=== PATIENT | female | born 1950 | race Two or more races ===

== ENCOUNTER 2017-02-12 00:54 | Emergency (ER) | payer MEDICARE, OTHER ==
[~2017-02-12] VITALS: Ht 160 cm; Wt 56.7 kg
[~2017-02-12 00:54] MED LIST: QUET200T PO; RIVA10TA PO
[2017-02-12 01:52] LABS: BASOPHILS # (AUTO) 0.1 /CMM (0.0-0.2); BASOPHILS % (AUTO) 0.6 % (0.0-2.0); HEMATOCRIT 37 % (33-45); HEMOGLOBIN 12.4 g/dL (11.5-14.8); LYMPHOCYTES # (AUTO) 1.3 /CMM (0.8-4.8); LYMPHOCYTES % (AUTO) 12.4 % (20.0-44.0); MEAN CORPUSCULAR HEMOGLOBIN 30 PG (26.0-33.0); MEAN CORPUSCULAR HGB CONC 33 g/dl (31.0-36.0); MEAN CORPUSCULAR VOLUME 90 fL (82-100); MONOCYTES # (AUTO) 1.2 /CMM (0.1-1.30); MONOCYTES % (AUTO) 11.9 % (2.0-12.0); NEUTROPHILS # (AUTO) 7.8 /CMM (1.8-8.9); NEUTROPHILS % (AUTO) 75.1 % (43.0-81.0); PLATELET COUNT (AUTO) 262 /CMM (150-450); RDW COEFFICIENT OF VARIATION 12.9 (11.5-15.0); RED BLOOD CELL COUNT(AUTO) 4.15 MIL/uL (4.0-5.2); WHITE BLOOD COUNT (AUTO) 10.4 K/uL (4.3-11.0)
[2017-02-12 02:01] LABS: CALCIUM, SERUM 7.9 mg/dL (8.5-10.1); CARBON DIOXIDE 31 mmol/L (21-32); CHLORIDE 97 mmol/L (98-107); GLUCOSE 107 mg/dL (74-106); POTASSIUM 3.6 mmol/L (3.5-5.1); SODIUM SERUM 134 mmol/L (136-145); UREA NITROGEN, BLOOD 13 mg/dL (7-18)
[2017-02-12 02:04] LABS: INR 0.99 (0.87-1.13); PROTHROMBIN TIME 10.6 SECS (9.5-12.7)
[2017-02-12 02:10] LABS: TROPONIN I < 0.017 ng/mL (0.00-0.056)
[2017-02-12] MEDS ORDERED: IV NS 0.9% 1,000 ML BAG IV ONE (03:00)
[2017-02-12] MEDS ORDERED: IV SET PRIMARY 1 EA INFUS.SET MC ONE ×2 (03:00→04:55)
[2017-02-12] MEDS ORDERED: IV NS 0.9% 1,000 ML ONE (03:00)
[2017-02-12 04:49] LABS: APPEARANCE,URINE SL CLOUDY (CLEAR); BILIRUBIN,URINE NEGATIVE (NEGATIVE); BLOOD, URINE TRACE-INTA Ery/uL (NEGATIVE); COLOR,URINE YELLOW (YELLOW); KETONES,URINE 1+ (NEGATIVE); LEUKOCYTE ESTERASE ,URINE 3+ (NEGATIVE); NITRITE, URINE NEGATIVE (NEGATIVE); PH,URINE 7.5 (5.0-8.0); PROTEIN,URINE NEGATIVE (NEGATIVE); UGLUCOSE NEGATIVE (NEGATIVE); UROBILINOGEN,URINE 0.2 EU/dL (0.2)
[2017-02-12] MEDS ORDERED: CEFTRIAXONE 1GM BAG (ER ONLY) 50 ML IV ONE (04:54)
[2017-02-12] MEDS ORDERED: CEFTRIAXONE 1 G in IV D5W 50 ML IV ONE (05:00)
[2017-02-12 05:01] LABS: BACTERIA,URINE 3+ /HPF (None Seen); SQUAMOUS EPITHELIAL CELL,UR Few /HPF (None Seen); WBC,URINE 81-100 /HPF (0-3)
[2017-02-12 05:23] VITALS: BP 129/77
== END 2017-02-12 05:24 | disposition home or self-care (01) ==
LOC: ER 00:55
DX: S00.03XA Contusion of scalp, initial encounter (principal); R55 Syncope and collapse; N30.00 Acute cystitis without hematuria; R82.99 Other abnormal findings in urine; Z88.2 Allergy status to sulfonamides; W22.8XXA Striking against or struck by other objects, initial encounter; Y93.89 Activity, other specified; Y92.89 Other specified places as the place of occurrence of the external cause; Y99.9 Unspecified external cause status
CPT/HCPCS: 36415; 70450-TC; 71010-TC; 80048-TC; 81000-TC; 84484-TC; 85025-TC; 85730-TC; 87086-TC; 87186-TC; A4606; J0696; J7030; Z7610

== ENCOUNTER 2017-03-09 16:14 | Inpatient (IN) | payer MEDICARE, OTHER ==
[~2017-03-09] VITALS: Ht 157.5 cm; Wt 53.5 kg
--- NOTE | 2017-03-09 19:43 | NUR ---
PT TO ER BED
--- NOTE | 2017-03-09 19:45 | NUR ---
PT BIBSELF, AMBULATORY TO ER BED 6, C/O HEADACHES AND R EYE PRESSURE, X 1 MONTH. PT WAS HERE 1 MONTH AGO FOR GLF AND HITTING FOREHEAD. PT AOX4 RR EVEN AND UNLABORED. NO SOB NOTED. NO NVD AT THIS TIME. PT GOWNED AND PLACED ON MONITOR. WAITING FOR MD WEBB.
--- NOTE | 2017-03-09 20:05 | NUR ---
DR. PIERRE AT BEDSIDE FOR EVAL.
--- NOTE | 2017-03-09 20:17 | NUR ---
Note kaylie in EDM - 03/09/17 at 2042 by SANDIE INFORMED MARKO BRENNAN FROM [facility] [address] TO BE TRANSFERED BACK TO FACILITY. HR [address] GABBY LAWSON[address] PER MARKO BRENNAN WILL SPEAKING TO DON REGARDING ACCEPTING TRANSFER. WAITING FOR CALL BACK.
[2017-03-09] MEDS ORDERED: IV NS 0.9% 1,000 ML BAG IV ONE (20:30)
[2017-03-09] MEDS ORDERED: IV SET PRIMARY 1 EA INFUS.SET MC ONE (20:40)
[2017-03-09] MEDS ORDERED: IV NS 0.9% 1,000 ML ONE (20:40)
[2017-03-09 20:41] LABS: BASOPHILS # (AUTO) 0.1 /CMM (0.0-0.2); EOSINOPHILS # (AUTO) 0.1 /CMM (0.0-0.7); EOSINOPHILS % (AUTO) 1.9 % (0.0-6.0); HEMATOCRIT 43 % (33-45); LYMPHOCYTES # (AUTO) 2.6 /CMM (0.8-4.8); LYMPHOCYTES % (AUTO) 34.1 % (20.0-44.0); MEAN CORPUSCULAR HEMOGLOBIN 23 PG (26.0-33.0); MEAN CORPUSCULAR HGB CONC 26 g/dl (31.0-36.0); MEAN CORPUSCULAR VOLUME 90 fL (82-100); MONOCYTES # (AUTO) 0.7 /CMM (0.1-1.30); MONOCYTES % (AUTO) 8.9 % (2.0-12.0); NEUTROPHILS # (AUTO) 4.2 /CMM (1.8-8.9); NEUTROPHILS % (AUTO) 54.1 % (43.0-81.0); PLATELET COUNT (AUTO) 313 /CMM (150-450); RDW COEFFICIENT OF VARIATION 12.8 (11.5-15.0); RED BLOOD CELL COUNT(AUTO) 4.79 MIL/uL (4.0-5.2); WHITE BLOOD COUNT (AUTO) 7.7 K/uL (4.3-11.0)
--- NOTE | 2017-03-09 20:42 | NUR ---
PT TO CT.
[2017-03-09 20:53] LABS: CALCIUM, SERUM 9.1 mg/dL (8.5-10.1); CARBON DIOXIDE 25 mmol/L (21-32); CHLORIDE 97 mmol/L (98-107); CREATININE 0.9 mg/dL (0.6-1.3); GLUCOSE 177 mg/dL (74-106); POTASSIUM 4.1 mmol/L (3.5-5.1); SODIUM SERUM 130 mmol/L (136-145); UREA NITROGEN, BLOOD 11 mg/dL (7-18)
[2017-03-09 20:56] LABS: INR 0.9 (0.87-1.13); PROTHROMBIN TIME 9.4 SECS (9.5-12.7)
[2017-03-09 20:59] LABS: ALANINE AMINOTRANSFERASE 16 U/L (12-78); ALBUMIN 3.9 g/dL (3.4-5.0); ALKALINE PHOSPHATASE 86 U/L (46-116); ASPARTATE AMINOTRANSFERASE 19 U/L (15-37); BILIRUBIN,DIRECT 0.1 mg/dL (0.0-0.2); BILIRUBIN,TOTAL 0.5 mg/dL (0.2-1.0); TOTAL PROTEIN, SERUM 7.6 g/dL (6.4-8.2)
[2017-03-09 21:01] LABS: TROPONIN I < 0.017 ng/mL (0.00-0.056)
--- NOTE | 2017-03-09 21:10 | NUR ---
PT RETURNED FROM CT.
--- NOTE | 2017-03-09 21:54 | NUR ---
JUVENTINO HERBERT AT BEDSIDE FOR EVAL.
[2017-03-09] MEDS ORDERED: HYDROCODONE/APAP 5/325MG 1 EACH TABLET PO PRN (22:30)
[2017-03-09] MEDS ORDERED: MAGNESIUM HYDROXIDE 30 ML UDC PO PRN (22:30)
[2017-03-09] MEDS ORDERED: ONDANSETRON HCL/PF 4 MG/2 ML VIAL IVP PRN (22:30)
[2017-03-09] MEDS ORDERED: ZOLPIDEM TARTRATE 5 MG TABLET PO PRN (22:30)
[2017-03-09] MEDS ORDERED: MAG HYDROX/AL HYDROX/SIMETH 30 ML UDC PO PRN (22:30)
[2017-03-09] MEDS ORDERED: ACETAMINOPHEN 325 MG TABLET PO PRN (22:30)
[2017-03-09] MEDS ORDERED: Z GUARD REMEDY 2 OZ OINT TP PRN (22:30)
--- NOTE | 2017-03-09 22:50 | NUR ---
MARKO FAYE AT BEDSIDE FOR IN AND OUT CATH.
--- NOTE | 2017-03-09 22:52 | NUR ---
REPORT GIVEN TO MARKO SAMUEL FOR ANNABEL.
--- NOTE | 2017-03-09 23:02 | NUR ---
URINE COLLECTED. CALLED LAB FOR HOUSING ASSISTANT PROPERTY MANAGER.
--- NOTE | 2017-03-09 23:13 | NUR ---
PT TRANSFERED PER [facility]S PROTOCOL TO [facility] BED 312-2
[2017-03-09] MEDS ORDERED: IV SET PRIMARY PUMP SET 1 EA INFUS.SET MC ONE (23:14)
[2017-03-09 23:15] VITALS: BP 130/80
--- NOTE | 2017-03-09 23:15 | NUR ---
CHIEF DATA OFFICER NOTES RECEIVED PT FROM ER VIA STRETCHER, ABLE TO WALK INSIDE THE ROOM AND LAY DOWN ON BED SAFELY, AT BEDSIDE. PT IS A/O X 4, VERBALLY RESPONSIVE. NO DISTRESS, NO SOB NOTED. RESPIRATION IS EVEN AND UNLABORED. BODY ASSESSMENT DONE, SKIN IS INTACT. IV SITE ON LAC INTACT AND PATENT, WITH NO S/S OF INFILTRATION NOTED. ALL NEEDS ATTENDED AND MET. KEPT COMFORTABLE. CALL LIGHT WITHIN REACH. GOALS AND POC D/W THE PT AND . WILL CONTINUE TO MONITOR.
[2017-03-09 23:24] LABS: APPEARANCE,URINE CLEAR (CLEAR); BILIRUBIN,URINE NEGATIVE (NEGATIVE); BLOOD, URINE NEGATIVE Ery/uL (NEGATIVE); KETONES,URINE NEGATIVE (NEGATIVE); LEUKOCYTE ESTERASE ,URINE NEGATIVE (NEGATIVE); NITRITE, URINE NEGATIVE (NEGATIVE); PROTEIN,URINE NEGATIVE (NEGATIVE); UGLUCOSE NEGATIVE (NEGATIVE); UROBILINOGEN,URINE 0.2 EU/dL (0.2)
[2017-03-09 23:27] LABS: COLOR,URINE STRAW (YELLOW)
[2017-03-09] MEDS: IV NS 0.9% 1,000 ML IV SCH (23:30)
[2017-03-10] VITALS (7 sets, daily range): BP systolic 101–130; BP diastolic 54–77
[2017-03-10] MEDS ORDERED: ZOLPIDEM TARTRATE 5 MG TABLET ONE (00:06)
[2017-03-10] MEDS ORDERED: ENOXAPARIN SODIUM 40 MG/0.4 ML DISP.SYRIN SQ ONE (00:15)
[2017-03-10] MEDS ORDERED: ENOXAPARIN SODIUM 40 MG/0.4 ML DISP.SYRIN SQ SCH ×2 (00:30→07:39)
--- NOTE | 2017-03-10 06:35 | NUR ---
LABORER DRIVER NOTES PT IN BED, RESTING COMFORTABLE. AROUSES EASILY. PT IS A/O X 4, VERBALLY RESPONSIVE. NO DISTRESS, NO SOB NOTED. RESPIRATION IS EVEN AND UNLABORED. SKIN IS INTACT. IV SITE ON LAC INTACT AND PATENT, WITH NO S/S OF INFILTRATION NOTED. INF INFUSING WELL. ALL NEEDS ATTENDED AND MET. KEPT COMFORTABLE. CALL LIGHT WITHIN REACH. SAFETY PRECAUTIONS OBSERVED. WILL ENDORSE TO NEXT SHIFT FOR ANNABEL.
--- NOTE | 2017-03-10 07:30 | NUR ---
RECEIVED PT. ALERT AND ORIENTED X4.
[2017-03-10 08:15] LABS: BASOPHILS # (AUTO) 0.1 /CMM (0.0-0.2); BASOPHILS % (AUTO) 1.2 % (0.0-2.0); EOSINOPHILS # (AUTO) 0.2 /CMM (0.0-0.7); HEMATOCRIT 35 % (33-45); HEMOGLOBIN 11.7 g/dL (11.5-14.8); LYMPHOCYTES # (AUTO) 2.4 /CMM (0.8-4.8); LYMPHOCYTES % (AUTO) 35.3 % (20.0-44.0); MEAN CORPUSCULAR HEMOGLOBIN 30 PG (26.0-33.0); MEAN CORPUSCULAR HGB CONC 34 g/dl (31.0-36.0); MEAN CORPUSCULAR VOLUME 88 fL (82-100); MONOCYTES # (AUTO) 0.7 /CMM (0.1-1.30); MONOCYTES % (AUTO) 10.9 % (2.0-12.0); NEUTROPHILS # (AUTO) 3.3 /CMM (1.8-8.9); NEUTROPHILS % (AUTO) 49.6 % (43.0-81.0); PLATELET COUNT (AUTO) 263 /CMM (150-450); RDW COEFFICIENT OF VARIATION 13.3 (11.5-15.0); WHITE BLOOD COUNT (AUTO) 6.7 K/uL (4.3-11.0)
[2017-03-10 09:00] LABS: CALCIUM, SERUM 8.1 mg/dL (8.5-10.1); CREATININE 0.7 mg/dL (0.6-1.3); MAGNESIUM 1.9 mg/dL (1.8-2.4); PHOSPHORUS 3.9 mg/dL (2.5-4.9); POTASSIUM 4.3 mmol/L (3.5-5.1)
[2017-03-10 09:09] LABS: MAGNESIUM 2.1 mg/dL (1.8-2.4); PHOSPHORUS 4.2 mg/dL (2.5-4.9)
--- NOTE | 2017-03-10 09:36 | NUR ---
TEXTED DR. NEGRETE FOR MRI APPROVAL.
--- NOTE | 2017-03-10 09:37 | NUR ---
TEXTED GROVER MANCIA FOR MRI APPROVAL.
[2017-03-10] MEDS: ASPIRIN 81 MG TAB.CHEW PO SCH (09:52)
[2017-03-10] MEDS: PANTOPRAZOLE 40 MG TABLET.DR PO SCH (09:52)
[2017-03-10 09:57] LABS: THYROID STIMULATING HORMONE 1.737 uIU/mL (0.358-3.74)
[2017-03-10 10:11] LABS: THYROID STIMULATING HORMONE 1.779 uIU/mL (0.358-3.74)
[2017-03-10] MEDS ORDERED: LORAZEPAM INJ 2 MG/ML VIAL IV ONE (10:30)
--- NOTE | 2017-03-10 11:00 | NUR ---
PRE-MED OF ATIVAN GIVEN FOR MRI.
--- NOTE | 2017-03-10 12:00 | NUR ---
HOME MEDS RECONCILED BY DR. CALZADA.
--- NOTE | 2017-03-10 12:30 | NUR ---
ECHO,CAROTID DUPLEX,PT. DONE.ADDITIONALLY MRI OF BRAIN DONE.
[2017-03-10] MEDS: MECLIZINE HCL 12.5 MG TABLET PO SCH ×2 (13:29→21:31)
--- NOTE | 2017-03-10 17:30 | NUR ---
TECH HERE AND EEG BEING DONE,SPOUSE IN TO VISIT SEVERAL TIMES.
[2017-03-10] MEDS: IV NS 0.9% 1,000 ML IV SCH (18:03)
--- NOTE | 2017-03-10 19:40 | NUR ---
TELE/RN NOTES RECEIVED PT. LYING IN BED. AWAKE, ALERT AND ORIENTED X4. BREATHING EVEN AND UNLABORED ON ROOM AIR. NO SOB, RESPIRATORY DISTRESS OR COMPLAINTS OF PAIN NOTED AT THIS TIME. PT. DENIES ANY HEADACHE, LIGHTHEADED OR DIZZINESS AT THIS TIME. PT. WITH EXTERNAL STEAM CRANE OPERATOR PRESENT AND INTACT. CURRENT RHYTHM = SINUS RHYTHM HR 82. PT. WITH RIGHT AC 18 GAUGE PERIPHERAL IV PRESENT, PATENT AND INTACT ADMINISTERING TO PT. NS @ 75 ML/HR. PT. FAMILY MEMBERS PRESENT AT BEDSIDE. EDUCATED PT. ON USING CALL LIGHT FOR ASSISTANCE BEFORE AMBULATING. PT. VERBALIZED UNDERSTANDING. BED IN LOWEST POSITION, CALL LIGHT WITHIN REACH, SIDE RAILS UP X2, BED ALARM ON, WILL CONTINUE TO MONITOR.
[2017-03-10] MEDS ORDERED: ATORVASTATIN 10 MG TABLET ONE (21:23)
[2017-03-10] MEDS ORDERED: LEVO25TA7 PO (21:45)
[2017-03-10] MEDS ORDERED: NORTRIPTYLINE HCL 25 MG CAPSULE PO SCH (22:00)
[2017-03-10] MEDS ORDERED: ATORVASTATIN 10 MG TABLET PO SCH (22:00)
[2017-03-11] VITALS: BP 130/73
[2017-03-11] MEDS: MECLIZINE HCL 12.5 MG TABLET PO SCH ×2 (05:52→13:10)
[2017-03-11] MEDS: IV NS 0.9% 1,000 ML IV SCH (06:38)
--- NOTE | 2017-03-11 06:59 | NUR ---
TELE/RN NOTES PT. LYING IN BED, AWAKE, ALERT AND ORIENTED X4. BREATHING EVEN AND UNLABORED ON ROOM AIR. NO SOB, RESPIRATORY DISTRESS OR COMPLAINTS OF PAIN NOTED AT THIS TIME. PT. DENIES ANY HEADACHE, LIGHTHEADED OR DIZZINESS AT THIS TIME AND THROUGHOUT SHIFT. PT. WITH EXTERNAL HEALTH INFORMATION MANAGEMENT DIRECTOR PRESENT AND INTACT. CURRENT RHYTHM = SINUS RHYTHM HR 82. PT. WITH RIGHT AC 18 GAUGE PERIPHERAL IV PRESENT, PATENT AND INTACT ADMINISTERING TO PT. NS @ 75 ML/HR. ALL PT. NEEDS MET. BED IN LOWEST POSITION, CALL LIGHT WITHIN REACH, SIDE RAILS UP X2, BED ALARM ON, WILL ENDORSE TO DAYSHIFT NURSE FOR CONTINUITY OF CARE.
[2017-03-11] MEDS ORDERED: LEVOTHYROXINE SODIUM 25 MCG TABLET PO SCH (07:30)
--- NOTE | 2017-03-11 07:47 | NUR ---
GAS STATION OPERATOR OPENING NOTE PATIENT IS ALERT AND ORIENTED x4. NO PAIN AT THIS TIME. NO SOB OR DISTRESS NOTED. CALL LIGHT WITHIN REACH. SAFETY MEASURES IMPLEMENTED. IV INTACT AND PATENT NO REDNESS OR SWELLING NOTED. ABLE TO COMMUNICATE NEEDS. WILL CONTINUE TO MONITOR
[2017-03-11 08:00] VITALS: BP 134/78
[2017-03-11] MEDS: ASPIRIN 81 MG TAB.CHEW PO SCH (08:19)
[2017-03-11] MEDS: PANTOPRAZOLE 40 MG TABLET.DR PO SCH (08:19)
[2017-03-11 09:10] LABS: BASOPHILS # (AUTO) 0.1 /CMM (0.0-0.2); BASOPHILS % (AUTO) 1.1 % (0.0-2.0); EOSINOPHILS # (AUTO) 0.2 /CMM (0.0-0.7); HEMATOCRIT 35 % (33-45); HEMOGLOBIN 11.5 g/dL (11.5-14.8); LYMPHOCYTES % (AUTO) 35.4 % (20.0-44.0); MEAN CORPUSCULAR HEMOGLOBIN 29 PG (26.0-33.0); MEAN CORPUSCULAR HGB CONC 33 g/dl (31.0-36.0); MEAN CORPUSCULAR VOLUME 90 fL (82-100); MONOCYTES # (AUTO) 0.6 /CMM (0.1-1.30); MONOCYTES % (AUTO) 9.8 % (2.0-12.0); NEUTROPHILS # (AUTO) 2.9 /CMM (1.8-8.9); NEUTROPHILS % (AUTO) 50.7 % (43.0-81.0); PLATELET COUNT (AUTO) 250 /CMM (150-450); RDW COEFFICIENT OF VARIATION 13.3 (11.5-15.0); RED BLOOD CELL COUNT(AUTO) 3.93 MIL/uL (4.0-5.2); WHITE BLOOD COUNT (AUTO) 5.7 K/uL (4.3-11.0)
[2017-03-11 09:15] LABS: CALCIUM, SERUM 8.4 mg/dL (8.5-10.1); CREATININE 0.7 mg/dL (0.6-1.3); POTASSIUM 4.1 mmol/L (3.5-5.1)
[2017-03-11 09:21] LABS: ALBUMIN 3.3 g/dL (3.4-5.0); BILIRUBIN,TOTAL 0.4 mg/dL (0.2-1.0); MAGNESIUM 1.9 mg/dL (1.8-2.4); PHOSPHORUS 3.8 mg/dL (2.5-4.9); TOTAL PROTEIN, SERUM 6.4 g/dL (6.4-8.2)
[2017-03-11] MEDS ORDERED: KETOROLAC TROMETHAMINE INJ 30 MG/ML VIAL IV STA (11:59)
[2017-03-11 13:32] VITALS: BP 141/77
--- NOTE | 2017-03-11 14:30 | NUR ---
MS MANAGER HOUSEKEEPING NOTE PATIENT IS ALERT AND ORIENTED x4. NO PAIN AT THIS TIME. NO SOB OR DISTRESS. ALL DUE MEDICATIONS GIVEN ORDERED. HOME MEDICATION PICKED UP FROM PHARMACY AND GIVEN BACK TO PATIENT. DISCHARGE INSTRUCTIONS GIVEN TO PATIENT AND FAMILY, VERBALIZATION GIVEN BACK. PRESCRIPTION GIVEN TO PATIENT AND FAMILY MEMBER. IV REMOVED, SKIN INTACT AND PATENT NO REDNESS OR SWELLING NOTED. ALL BELONGINGS WITH PATIENT. LEFT VIA PRIVATE CAR WITH AND DAUGHTER.
== END 2017-03-11 14:30 | disposition home or self-care (01) | DRG 74 ==
LOC: ER 16:16 → TELE 22:47 → MED 03-11 09:51
PROVIDERS: ADMIT Nurse Practitioner Acute Care; ATTEND Nurse Practitioner Acute Care
DX: G90.8 Other disorders of autonomic nervous system (principal); E87.1 Hypo-osmolality and hyponatremia; F07.81 Postconcussional syndrome; E03.9 Hypothyroidism, unspecified; F32.9 Major depressive disorder, single episode, unspecified; F41.9 Anxiety disorder, unspecified; G47.00 Insomnia, unspecified; H93.19 Tinnitus, unspecified ear; I48.91 Unspecified atrial fibrillation; K57.90 Diverticulosis of intestine, part unspecified, without perforation or abscess without bleeding; Z91.81 History of falling; K59.00 Constipation, unspecified; Z88.2 Allergy status to sulfonamides; M19.90 Unspecified osteoarthritis, unspecified site; Z98.890 Other specified postprocedural states; R47.81 Slurred speech; G93.89 Other specified disorders of brain; R51 Headache; R74.0 Nonspecific elevation of levels of transaminase and lactic acid dehydrogenase [LDH]; D64.9 Anemia, unspecified; S09.90XS Unspecified injury of head, sequela; W19.XXXS Unspecified fall, sequela; R25.1 Tremor, unspecified
CPT/HCPCS: 36415; 70450-TC; 70551-TC; 71010-TC; 80048-TC; 80053-TC; 80061-TC; 80076-TC; 81000-TC; 82306; 82728-TC; 83540-TC; 83735-TC; 83935-TC; 84100-TC; 84425; 84439-TC; 84443-TC; 84484-TC; 85025-TC; 85652-TC; 85730-TC; 87081-TC; 93307-TC; 93880-TC; 95819-TC; 97001-TC; A4606; J1650; J1885; J2060; J7030; J8597; Z7610